=== PATIENT | male | born 1980 ===

== ENCOUNTER 2020-09-20 12:31 | Emergency (ER) | payer MEDICAID ==
[~2020-09-20] VITALS: Ht 170.2 cm; Wt 65.9 kg
[2020-09-20 12:35] VITALS: BP 139/89
== END 2020-09-20 12:44 | disposition left against medical advice (07) ==
LOC: EMS 12:42
DX: Z20.828 Contact with and (suspected) exposure to other viral communicable diseases (principal); Z53.21 Procedure and treatment not carried out due to patient leaving prior to being seen by health care provider